=== PATIENT | male | born 1950 ===

== ENCOUNTER → 2016-04-09 07:05 | Day surgery (SDC) | payer OTHER ==
--- NOTE | 2016-04-08 12:32 | HP ---
PREOPERATIVE HISTORY AND PHYSICAL: DATE OF ADMISSION: 04/09/16 [facility] CHIEF COMPLAINT: Right wrist pain. HISTORY OF PRESENT ILLNESS: This is a 66-year-old incarcerated male who complains of pain on the radial aspect of his right wrist. He injured it in October of 2004. He tripped over a sidewalk and fell on his outstretched right hand. This is his dominant hand. He was initially treated with a cast for approximately 6 weeks. The cast was then removed. He has continued pain. 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 He presents for ORIF of the right scaphoid with distal radius bone graft. PAST MEDICAL HISTORY: Asthma, depression. PAST SURGICAL HISTORY: Right fibular fracture, ORIF and tonsillectomy. MEDICATIONS: 1. Buspirone HCl 10 mg 2 pills p.o. b.i.d. 2. Prilosec 20 mg daily. 3. Motrin 200 mg p.r.n. 4. Proventil 2 puffs by mouth every 4 hours as needed. ALLERGIES: TETRACYCLINE, CODEINE, HALDOL, PEANUTS, EGGS, FISH, STRAWBERRIES, and other BERRIES. FAMILY HISTORY: Noncontributory. SOCIAL HISTORY: He is currently incarcerated. He is a former smoker. He is not using alcohol currently. REVIEW OF SYSTEMS: Positive for blurry vision. Cardiovascular: Negative. Pulmonary: Negative. GI: Negative. : Negative. Musculoskeletal: Positive for chronic back and neck pain. Neurologic: Positive for history of depression, anxiety. Endocrine: Negative. Skin: He has a skin rash on his back, possibly shingles. PHYSICAL EXAMINATION GENERAL: He is a healthy-appearing male, in mild distress at rest from the rash on his back. VITAL SIGNS: Height is 68 inches, weight 180 pounds, pulse 64, blood pressure 138/80. HEENT: Exam is unremarkable. He has good range of motion of his neck with minimal pain. LUNGS: Clear to auscultation. Good inspiratory effort. No wheezing. CARDIAC: Regular rate and rhythm without murmur. PERIPHERAL VASCULAR: He has palpable pulses. No peripheral edema. EXTREMITY EXAM: He has tenderness on the snuffbox of his right wrist with minimal swelling and loss of motion. I can fully flex and extend his fingers and his neurovascular function is intact. NEUROLOGIC: He is alert and oriented without focal deficits. 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 PLAN: Open reduction and internal fixation of the right scaphoid with distal radius bone graft. The surgical procedure, the risks, and benefits were explained to the patient and he agrees to proceed. We will see him back in followup 10 to 14 days postop. Pain medication will be prescribed by the facility. [id number]/[facility] #: [id number] MTDD
[~2016-04-09 07:05] MED LIST: Buffered Lidocaine 1% SYR 3ML* 3 ML/SYR SYRINGE INTRADERM ONE; Buffered Lidocaine 1% SYR 3ML* 3 ML/SYR SYRINGE ONE; Bupivacaine 0.5% SDV PF* 30 ML VIAL ONE; Etomidate* 2 MG/ML 20 ML VIAL (40 MG) ONE; Gelfoam 12-7 ADSORBABL SPONGE* 1 EA SPONGE ONE; HYDROcodone/ACETAMIN 5-325 MG* 1 TAB ONE; Levalbuterol HFA INHALER* 1 PUFF MDI ONE; Midazolam* 1 MG/ML 2 ML VIAL (2 MG) ONE; Ondansetron INJ* 2 MG/ML VIAL IV PRN; ROPIVACAINE 5 MG/ML 30 ML BTL (0.5%) ONE; ceFAZolin 2 GM PREMIX (*) 2 GM/50 ML BAG IVPB ONE; fentaNYL* 50 MCG/ML 2 ML VIAL (100 MCG VIAL) IV PRN; fentaNYL* 50 MCG/ML 2 ML VIAL (100 MCG VIAL) ONE
[2016-04-09 11:46] VITALS: BP 127/85
--- NOTE | 2016-04-10 01:59 | OP ---
DATE OF OPERATION: 04/09/16 - [facility] DATE OF : 54 SURGEON: Dr. Petersen. ORDNANCE ENGINEERING TECHNICIAN: RAJINDER Olmos. ANESTHESIOLOGIST: Ho Mcconnell DO ANESTHESIA: General. 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 OPERATIVE PROCEDURE: Open reduction and internal fixation of the right scaphoid with distal radius bone graft. ESTIMATED BLOOD LOSS: Zero. TOURNIQUET TIME: About an hour. INDICATIONS FOR PROCEDURE: Warren is a 66-year-old male with pain in his right wrist. X-ray shows a nonunion of his scaphoid. CT scan shows a humpback deformity. He presents for ORIF of the right scaphoid with distal radius bone graft. DESCRIPTION OF PROCEDURE: The patient was brought to the operating room, was given a general anesthetic and placed in a supine position on the operating table with a tourniquet around his right upper extremity. The right upper extremity was exsanguinated and the tourniquet elevated to 250 mmHg. A hockey stick shaped incision was made on the volar aspect of the wrist over the FCR tendon and dissected sharply through the FCR tendon sheath, superficial and deep , and then down on to the scaphoid tubercle. The nonunion site was easily located. It was cleaned out with rongeur, curettes, and then drilled with a K- wire, so that bleeding bone was present. We then elevated the pronator quadratus and harvested a piece of structural bone graft, cortically and cancellous, from the distal radius with a combination of drill holes and an osteotome. The bone graft was placed in the defect and then a guidewire from the [employer] set was drilled across the distal fragment of the bone graft into the proximal fragment. The position of the guidewire was checked on the C-arm in the AP and lateral views and found to be satisfactory. We then drilled and placed a 20-mm screw across the three fragments. An additional bone graft was packed in the defect. The wound was irrigated and the wrist capsule closed with 2-0 Polysorb suture. The FCR tendon sheath was also closed with 2- 0 Polysorb suture and then the skin edges were reapproximated with 4- 0 nylon suture. The wound was dressed with Xeroform, 4x4, Webril, and a sugar-tong thumb spica splint. The patient tolerated the procedure well and was brought to the recovery room in good condition. [id number]/[facility] #: [id number] RAMIRO
--- NOTE | 2016-04-10 11:52 | RAD ---
INDICATION: Right scaphoid. No other history is provided COMPARISONS: None relevant TECHNIQUE: Fluoroscopy was provided for a surgical procedure. Total fluoroscopy time is: 1 minute FINDINGS: Spot images demonstrate internal fixation of the scaphoid IMPRESSION: FLUOROSCOPY WAS PROVIDED FOR A PAIN MANAGEMENT PROCEDURE CPT II Codes: [id number]
== END | disposition home or self-care (01) ==
LOC: EDBD → OREAST 07:05
PROVIDERS: ATTEND Orthopaedic Surgery
DX: S62.001K Unspecified fracture of navicular [scaphoid] bone of right wrist, subsequent encounter for fracture with nonunion (principal); J45.909 Unspecified asthma, uncomplicated; W18.09XD Striking against other object with subsequent fall, subsequent encounter; Y92.480 Sidewalk as the place of occurrence of the external cause
CPT/HCPCS: 76000; A9270-GY; C1713; C1769; J0690; J2250; J2795; J3010